=== PATIENT | male | born 1965 | race Caucasian/White ===

== ENCOUNTER → 2018-07-07 | Outpatient (REF) | payer BC ==
[~2018-07-07] MED LIST: COL0.6 PO; DIA10 PO; DIA5 PO; DOC240 PO; FEXO30TA36 PO; HYDR-3078 PO; HYDR12.558 PO; HYDR12.561 PO; LISI-362 PO; LISI2.5T60 PO; LOR5 PO; METH4TAB57 PO; MULT-820 PO; OXYC20TA86 PO; PAIN PILL PO; PER PO; PRE20 PO; WAR2 PO; [UNRECOGNIZED DRUG - CODE] PO
[2018-07-07 19:52] LABS: PLATELET COUNT, AUTOMATED 275 K/uL (150-450)
== END ==
PROVIDERS: ATTEND Nurse Practitioner Family
DX: M79.672 Pain in left foot (principal)
CPT/HCPCS: 82040; 82247; 82310; 82374; 82435; 82565; 82947; 84075; 84132; 84155; 84295; 84450; 84460; 84520; 85025